=== PATIENT | male | born 1985 | race African-American/Black ===

== ENCOUNTER 2018-12-11 01:23 | Emergency (ER) | payer MEDICAID ==
[~2018-12-11] VITALS: Ht 185.4 cm; Wt 139.7 kg
[2018-12-11 02:09] LABS: Urine Bacteria FEW /hpf (None Seen); Urine Blood Negative /uL (Negative); Urine Mucus FEW (None Seen); Urine Specific Gravity 1.025 (1.001-1.035); Urine WBC 49 /hpf (0 - 3)
[2018-12-11 07:27] VITALS: BP 140/93
[2018-12-11] MEDS ORDERED: PENICILLIN G BENZ 1200000 UNITS/2 ML SYRG IM ONE (07:45)
[2018-12-11] MEDS ORDERED: AZITHROMYCIN 250 MG TAB PO ONE (07:45)
[2018-12-11] MEDS ORDERED: cefTRIAXone SODIUM 250 MG VL IM ONE (07:45)
== END 2018-12-11 08:28 | disposition home or self-care (01) ==
LOC: ER 01:25
DX: N39.0 Urinary tract infection, site not specified (principal); A64 Unspecified sexually transmitted disease
CPT/HCPCS: 81001; 87070; 96372; 99283; J0561; J0696

== ENCOUNTER 2025-07-08 18:09 | Emergency (ER) | payer MEDICAID ==
[~2025-07-08] VITALS: Ht 185.4 cm; Wt 161.8 kg
--- NOTE | 2025-07-08 19:26 | ED.PDOC ---
History of Present Illness(SKN HPI Comments 39 year old male presents to the emergency department for chief complaint of abscess from a known perianal abcess onset 4 months ago. Pt reports a hx of previously diagnosed perirectal abbess that has been treated with multiple rounds of antibiotics without reolsution. Pt states they are currently taking K- flex among 3 other unknown antibiotics to treat the abbess. Pt complains of drainage, fluids, persistent pain, bleeding and open, fleshly wound. Pt has seen several urgent cares but was advised for immediate ED evaluation due to lack of improvement and increased bleeding. Pt denies associated symptoms of dizziness, headache, D/V/N at this time. No other associated symptoms, modifiers, recent injuries or sick contacts present at this time. Chief Complaint: Abscess Time Seen by MD: 19:25 History of Present Illness: Nurses Notes, Medications, Allergies Allergies: Coded Allergies: NO KNOWN ALLERGIES (Unverified , 12/11/18) Home Meds Active Scripts Mupirocin Calcium (Topical) (MUPIROCIN) 2 % Cre, 2 % EX TID for 14 Days, #60 CRE Prov:MARILUZ JACKSON MD 07/08/25 Amoxicillin & Pot Clavulanate (AUGMENTIN TABLET) 875 Mg Tb, 875 MG PO BID for 10 Days, #20 TAB Prov:MARILUZ JACKSON MD 07/08/25 Mode of Arrival: Ambulatory Prehospital treatment: None Location: Perineum Object: None Condition of Object: None Wound Type: None History of: None Past Medical History Surgical History: Denies all surgeries Social History Smoker: Cigarettes Alcohol: Occasionally Constitutional: denies: chills, diaphoresis, fatigue, fever, malaise, sweats, weakness, others EENTM: denies: blurred vision, double vision, ear bleeding, ear discharge, ear drainage, ear pain, ear ringing, eye pain, eye redness, hearing loss, mouth pain, mouth swelling, nasal discharge, nose bleeding, nose congestion, nose pain, photophobia, tearing, throat pain, throat swelling, voice changes, others Respiratory: denies: cough, hemoptysis, orthopnea, SOB at rest, shortness of breath, SOB with excertion, stridor, wheezing, others Cardiovascular: denies: chest pain, dizzy spells, diaphoresis, Dyspnea on exertion, edema, irregular heart beat, left arm pain, lightheadedness, palpitations, PND, syncope, others Gastrointestinal: denies: abdomen distended, abdominal pain, blood streaked bowels, constipated, diarrhea, dysphagia, difficulty swallowing, hematemesis, melena, nausea, poor appetite, poor fluid intake, rectal bleeding, rectal pain, vomiting, others Genitourinary: reports: others (perianal abcess with drainage and blood); denies: burning, dysuria, flank pain, frequency, hematuria, incontinence, penile discharge, penile sore, pain, testicle pain, testicle swelling, urgency Neurological: denies: dizziness, fainting, headache, left sided numbness, left sided weakness, numbness, paresthesia, pre-existing deficit, right sided numbness, right sided weakness, seizure, speech problems, tingling, tremors, weakness, others Musculoskeletal: denies: back pain, gout, joint pain, joint swelling, muscle pain, muscle stiffness, neck pain, others Integumetry: denies: bruises, change in color, change in hair/nails, dryness, laceration, lesions, lumps, rash, wounds, others Allergic/Immunocompromised: denies: Difficulty Healing, Frequent Infections, Hives, Itching, others Hematologic/Lymphatic: denies: anemia, blood clots, easy bleeding, easy bruising, swollen glands, others Endocrine: denies: excessive hunger, excessive sweating, excessive thirst, excessive urination, flushing, intolerance to cold, intolerance to heat, unexplained weight gain, unexplained weight loss, others Psychiatric: denies: anxiety, bipolar disorder, depression, hopeless, panic disorder, schizophrenia, sleepless, suicidal, others All Other Systems: Reviewed and Negative Physical Exam General Appearance: No Apparent Distress, Normal HEENT: Normal ENT Inspection, Pharynx Normal, TMs Normal Neck: Full Range of Motion, Non-Tender, Normal, Normal Inspection Respiratory: Chest Non-Tender, Lungs Clear, No Accessory Muscle Use, No Respiratory Distress, Normal Breath Sounds Cardiovascular: No Edema, No JVD, No Murmur, No Gallop, Normal Peripheral Pulses, Regular Rate/Rhythm Breast Exam: Deferred Gastrointestinal: No Organomegaly, Non Tender, No Pulsatile Mass, Normal Bowel Sounds, Soft Genitalia: Deferred Pelvic: Deferred Rectal: Deferred Extremities: No calf tenderness, Normal capillary refill, Normal inspection, Normal range of motion, Non-tender, No pedal edema Musculoskeletal : Apperance: Normal Neurologic: Alert, equipment installer II-XII nml as Tested, No Motor Deficits, Normal Affect, Normal Mood, No Sensory Deficits Cerebellar Function: Normal Reflexes: Normal Skin: Dry, Normal Color, Warm Lymphatic: No Adenopathy Was a procedure done? Was a procedure done?: No X-Ray, Labs, Meds, VS Vital Signs Date Time Temp Pulse Resp B/P (MAP) Pulse Ox O2 Delivery O2 Flow Rate FiO2 07/08/25 21:45 97.7 94 17 143/86 (105) 93 97.7 07/08/25 20:14 97.7 101 16 127/81 (96) 95 97.7 07/08/25 20:14 Room Air 07/08/25 18:19 98.0 90 18 156/94 98 98.0 Lab Test 07/08/25 19:20 Range/Units White Blood Count 10.1 4.4-10.8 10^3/uL Red Blood Count 5.18 4.5-5.90 10^6/uL Hemoglobin 14.7 13.5-17.5 g/dL Hematocrit 45.7 41.0-53.0 % Mean Corpuscular Volume 88.2 80.0-100.0 fL Mean Corpuscular Hemoglobin 28.4 28.0-32.0 pg Mean Corpuscular Hemoglobin Concent 32.2 32.0-36.0 g/dL Red Cell Distribution Width 14.8 H 11.8-14.3 % Platelet Count 323 140-450 10^3/uL Mean Platelet Volume 7.9 6.9-10.8 fL Neutrophils (%) (Auto) 59.0 37.0-80.0 % Lymphocytes (%) (Auto) 27.0 10.0-50.0 % Monocytes (%) (Auto) 9.4 0.0-12.0 % Eosinophils (%) (Auto) 3.5 0.0-7.0 % Basophils (%) (Auto) 1.1 0.0-2.0 % Neutrophils # (Auto) 6.0 1.6-8.6 10 ^3/uL Lymphocytes # (Auto) 2.7 0.4-5.4 10 ^3/uL Monocytes # (Auto) 1.0 0-1.3 10 ^3/uL Eosinophils # (Auto) 0.4 0-0.8 10 ^3/uL Basophils # (Auto) 0.1 0-0.2 10 ^3/uL Nucleated Red Blood Cells 0.0 % Sodium Level 139 136-145 mmol/L Potassium Level 4.2 3.5-5.1 mmol/L Chloride Level 102 98-107 mmol/L Carbon Dioxide Level 29 20-31 mmol/L Anion Gap 8 5-15 Blood Urea Nitrogen 6 L 9-23 mg/dL Creatinine 1.15 0.700-1.30 mg/dL Glomerular Filtration Rate Calc 84 >90 mL/min BUN/Creatinine Ratio 5.2 L 10.0-20.0 Serum Glucose 136 H 74-106 mg/dL Lactic Acid Level 1.2 0.4-2.0 mmol/L Calcium Level 9.9 8.7-10.4 mg/dL Current Medications Medications (Trade) Dose Ordered Sig/Yany Route Start Time Stop Time Status Last Admin Sodium Chloride 1,000 ml @ 1,000 mls/hr Q1H ONCE IVB 07/08/25 18:45 07/08/25 19:44 DC 07/08/25 20:00 Piperacillin Sod/ Tazobactam Sod 100 ml @ 100 mls/hr ONCE ONCE IV 07/08/25 18:45 07/08/25 19:44 DC 07/08/25 20:00 X-Ray, Labs, Meds, VS Comment [place] [address] Ph: [phone] DIAGNOSTIC IMAGING Diagnostic Imaging Report : [id number] Signed PATIENT: GLEN SHEEHAN ACCT: [id number] UNIT: [id number] : 1985 LOC: ER ROOM / BED: / AGE / SEX: 39 / M ADM STATUS: REG ER SERVICE 19 ORDERING PHYSICIAN: MARILUZ JACKSON MD PROCEDURE(s): ABPL - CT AB PEL WO CON-NO ORAL OR IV REASON: r/o pelvic or rectal infection ORDER NUMBER(s): [id number], ACCESSION NUMBER(s): [id number] EXAM: CT CT AB PEL WO CON-NO ORAL OR IV History: r/o pelvic or rectal infection Comparison Study: None TECHNIQUE: Multidetector spiral CT of the abdomen was performed from lung bases to pubic symphysis. Imaging was performed without IV contrast. Axial, coronal and sagittal multiplanar reformats were obtained from the axial data set by the technologist. Radiation Dose : 1. Abdomen/Pelvis: CTDIvol 25.85 mGy, DLP 2470.14 mGy*cm. FINDINGS: Evaluation of solid organs is limited due to lack of intravenous contrast use. Lung Bases: No acute or significant lung base finding. Normal heart size. No pleural or pericardial effusion. Liver: The liver is normal in size. No focal lesions. Gallbladder and Biliary Tree: Unremarkable Spleen: Unremarkable Pancreas: The pancreas is grossly normal in appearance. Adrenal Glands: Unremarkable Kidneys: Kidneys are grossly normal without calculi or hydronephrosis. Bladder: Grossly unremarkable for degree of distention. Bowel: The stomach is grossly normal in appearance. Small bowel and colon are normal in caliber and distribution. Normal appendix is visualized in the right lower quadrant without findings of appendicitis. Ascites: Absent Lymphadenopathy: No mesenteric, retroperitoneal or periportal lymphadenopathy. Abdominal Wall and Mesentery: Unremarkable. Vasculature: The visualized abdominal aorta is normal in size and caliber. Evaluation of abdominal and pelvic vessels is limited due to lack of intravenous contrast. Pelvic Organs: Unremarkable Musculoskeletal: No aggressive focal bony lesions, acute fractures or dislocation. IMPRESSION: No acute abdominal or pelvic findings. Radiation optimization: All CT scans at this facility use at least one of these dose optimization techniques: automated exposure control mA and/or kV adjustment per patient size (includes targeted exams where dose is matched to clinical indication) or iterative reconstruction. ATED BY: CAMMIE KAPOOR MD DICTATED DATE/TIME: 07/08/251958 SIGNED BY: CAMMIE KAPOOR MD SIGNED DATE/TIME: 07/08/251958 CC: Time of 1ST Reevaluation: 19:55 Reevaluation 1ST: Unchanged Patient Education/Counseling: Diagnosis, Treatment, Need For Follow Up Family Education/Counseling: No Family Present SEPSIS Sepsis Screen Date sepsis recognized/suspect: Jul 08, 2025 Time Sepsis recognized/suspect: 1818 Recent Procedure: No On Antibiotic Therapy: No Respiratory Rate >20: No Heart Rate >90: No Temp<36 C (96.8 F) or >38.3 C: No SBP <90 or MAP <65 mmHG: No New Acute Mental Status Change: No Is the patient on CPAP, BIPAP,: No Physician Orders Blood Culture (07/08/25 18:44) Ct Ab Pel Wo Con-No Oral Or Iv (07/08/25 19:20) Vital Signs Date Time Temp Pulse Resp B/P (MAP) Pulse Ox O2 Delivery O2 Flow Rate FiO2 07/08/25 21:45 97.7 94 17 143/86 (105) 93 97.7 07/08/25 20:14 97.7 101 16 127/81 (96) 95 97.7 07/08/25 20:14 Room Air 07/08/25 18:19 98.0 90 18 156/94 98 98.0 Laboratory Tests Test 07/08/25 19:20 Lactic Acid Level 1.2 mmol/L (0.4-2.0) White Blood Count 10.1 10^3/uL (4.4-10.8) Medications Medications Dose Ordered Sig/Yany Route Start Time Stop Time Status Last Admin Dose Admin Piperacillin Sod/ Tazobactam Sod 100 ml @ 100 mls/hr ONCE ONCE IV 07/08/25 18:45 07/08/25 19:44 DC 07/08/25 20:00 Sodium Chloride 1,000 ml @ 1,000 mls/hr Q1H ONCE IVB 07/08/25 18:45 07/08/25 19:44 DC 07/08/25 20:00 Departure 1 Departure Time of Disposition: 22:00 Impression: Primary Impression: Perirectal cellulitis Disposition: 01 HOME / SELF CARE / HOMELESS Condition: Stable e-Prescriptions Mupirocin Calcium (Topical) (MUPIROCIN) 2 % Cre 2 % EX TID for 14 Days, #60 CRE Prov: MARILUZ JACKSON MD 07/08/25 Amoxicillin & Pot Clavulanate (AUGMENTIN TABLET) 875 Mg Tb 875 MG PO BID for 10 Days, #20 TAB Prov: MARILUZ JACKSON MD 07/08/25 Discharged With: Self Critical Care Note Critical Care Time?: No Stability Stability form required: No I personally scribed for MARILUZ JACKSON MD ([email or web address]) on 07/08/25 at 19:26. Electronically submitted by Sondra Barba ([email or web address]). I personally scribed for MARILUZ JACKSON MD ([email or web address]) on 07/08/25 at 19:27. Electronically submitted by Sondra Barba (PPIMENTEL). I personally scribed for MARILUZ JACKSON MD ([email or web address]) on 07/08/25 at 19:49. Electronically submitted by Sondra Barba (PPIMENTEL). I personally scribed for MARILUZ JACKSON MD ([email or web address]) on 07/09/25 at 00:55. Electronically submitted by Sondra Barba (PPIMENTEL). MAIRLUZ JACKSON MD Jul 08, 2025 19:26
[2025-07-08] MEDS: SODIUM CHLORIDE 0.9% 1,000 ML IVB ONE (20:00)
[2025-07-08] MEDS: PIPERACILLIN-TAZOB 3.375GM 100 ML IV ONE (20:00)
--- NOTE | 2025-07-08 20:02 | DVH ---
EXAM: CT CT AB PEL WO CON-NO ORAL OR IV History: r/o pelvic or rectal infection Comparison Study: None TECHNIQUE: Multidetector spiral CT of the abdomen was performed from lung bases to pubic symphysis. Imaging was performed without IV contrast. Axial, coronal and sagittal multiplanar reformats were obtained from the axial data set by the technologist. Radiation Dose : 1. Abdomen/Pelvis: CTDIvol 25.85 mGy, DLP 2470.14 mGy*cm. FINDINGS: Evaluation of solid organs is limited due to lack of intravenous contrast use. Lung Bases: No acute or significant lung base finding. Normal heart size. No pleural or pericardial effusion. Liver: The liver is normal in size. No focal lesions. Gallbladder and Biliary Tree: Unremarkable Spleen: Unremarkable Pancreas: The pancreas is grossly normal in appearance. Adrenal Glands: Unremarkable Kidneys: Kidneys are grossly normal without calculi or hydronephrosis. Bladder: Grossly unremarkable for degree of distention. Bowel: The stomach is grossly normal in appearance. Small bowel and colon are normal in caliber and distribution. Normal appendix is visualized in the right lower quadrant without findings of appendicitis. Ascites: Absent Lymphadenopathy: No mesenteric, retroperitoneal or periportal lymphadenopathy. Abdominal Wall and Mesentery: Unremarkable. Vasculature: The visualized abdominal aorta is normal in size and caliber. Evaluation of abdominal and pelvic vessels is limited due to lack of intravenous contrast. Pelvic Organs: Unremarkable Musculoskeletal: No aggressive focal bony lesions, acute fractures or dislocation. IMPRESSION: No acute abdominal or pelvic findings. Radiation optimization: All CT scans at this facility use at least one of these dose optimization techniques: automated exposure control mA and/or kV adjustment per patient size (includes targeted exams where dose is matched to clinical indication) or iterative reconstruction.
[2025-07-08 20:11] LABS: Hematocrit 45.7 % (41.0-53.0); Hemoglobin 14.7 g/dL (13.5-17.5); Mean Corpuscular Hemoglobin 28.4 pg (28.0-32.0); Mean Corpuscular Volume 88.2 fL (80.0-100.0); Nucleated Red Blood Cells % 0.0 %
[2025-07-08 20:15] LABS: Chloride 102 mmol/L (98-107); Potassium 4.2 mmol/L (3.5-5.1); Sodium 139 mmol/L (136-145)
[2025-07-08 20:16] LABS: Anion Gap 8 (5-15); Calcium 9.9 mg/dL (8.7-10.4); Carbon Dioxide 29 mmol/L (20-31)
[2025-07-08 20:21] LABS: BUN/Creatinine Ratio 5.2 (10.0-20.0)
[2025-07-08 20:23] LABS: Blood Urea Nitrogen 6 mg/dL (9-23); Glucose 136 mg/dL (74-106)
[2025-07-08] MEDS ORDERED: AUG875T PO (20:58)
[2025-07-08] MEDS ORDERED: MUPI2CRE17 EX (20:58)
[2025-07-08 21:45] VITALS: BP 143/86; PULSE 94; RESP 17; TEMP 97.7; O2SAT 93
== END 2025-07-08 21:50 | disposition home or self-care (01) ==
LOC: ER 18:09
DX: K61.1 Rectal abscess (principal); F17.210 Nicotine dependence, cigarettes, uncomplicated
CPT/HCPCS: 36415; 74176; 80048; 83605; 85025; 87040; 96365; 99285; J2543